=== PATIENT | male | born 1995 | race African-American/Black ===

== ENCOUNTER 2018-05-11 15:29 | Emergency (ER) | payer BC ==
[~2018-05-11] VITALS: Ht 165.1 cm; Wt 62.0 kg
[2018-05-11 15:50] VITALS: BP 100/56
--- NOTE | 2018-05-11 16:22 | NUR ---
PT AMBULATORY TO ROOM 36 W/ C/O RECTAL PAIN AND C/O EXTERNAL HEMORRHOIDS. STATES HE HAS DRAINED THEM HIMSELF. PT RESTING ON GURNEY ON SIDE. [place]. JACK KOCH AT BEDSIDE.
[2018-05-11] MEDS ORDERED: NAPROXEN 500 MG TABLET ONE (17:10)
--- NOTE | 2018-05-11 17:18 | NUR ---
PT REQUESTED RX FOR TRAMADOL IT HELPED LAST TIME WITH THE PAIN. PER DR. KOCH HE WOULD NOT PRESCRIBE A NARCOTIC FOR PT'S CONDITION TODAY. PT AWARE AND REQUESTED TO SPEAK TO COMBER SETTER. COMBER SETTER SPOKE TO PT AND PT GIVEN NAPROSYN PRIOR TO DC AND A RX FOR NAPROSYN THAT WAS ORIGINALLY INCLUDED WITH ANTIBIOTICS.
[2018-05-11] MEDS ORDERED: NAPROXEN 500 MG TABLET PO ONE (17:30)
== END 2018-05-11 17:21 | disposition home or self-care (01) ==
LOC: ED 17:05
DX: L73.8 Other specified follicular disorders (principal)
CPT/HCPCS: 99283